=== PATIENT | female | born 1990 | race American Indian/Alaskan Native ===

== ENCOUNTER 2022-01-21 01:02 | Emergency (ER) | payer MEDICAID ==
[2022-01-21 02:45] VITALS: BP 134/84
== END 2022-01-21 04:00 | disposition left against medical advice (07) ==
LOC: ED 01:02
DX: G43.909 Migraine, unspecified, not intractable, without status migrainosus (principal); Z53.21 Procedure and treatment not carried out due to patient leaving prior to being seen by health care provider